=== PATIENT | female | born 1985 | race Caucasian/White ===

== ENCOUNTER 2016-06-07 07:20 | Emergency (ER) | payer BC ==
--- NOTE | 2016-06-07 07:41 | Emergency Department Record ---
History of Present Illness - General Chief Complaint: Dizziness Stated Complaint: DIZZINESS Time Seen by Provider: 06/07/16 07:26 Source: Patient Mode of Arrival: Ambulatory Limitations: No limitations - History of Present Illness Initial Comments: 31 yo female presents to ED with a CC of fatigue, dizziness, generalized weakness, and difficulty with concentration for the past several days (3-4 per patient). Patient denies fevers, chills, cough, or recent illness. Patient reports a history of anemia and psoriatic arthritis at her baseline. Patient denies any focal weakness on examination. MD Complaint: Dizziness Onset/Timin -: Days(s) Timing: Gradual onset Description: Other History of Same: No History of Trauma: No Severity: Moderate Improves With: Nothing Worsens With: Nothing Associated Symptoms: Weakness - [place] Coma Scale Eye Response: (4) Open spontaneously Motor Response: (6) Obeys commands Verbal Response: (5) Oriented [place] Total: 15 - Related Data Home Medications Medication Instructions Recorded Confirmed Last Taken Esomeprazole Magnesium [Nexium] 40 mg PO DAILY 12/19/13 06/07/16 06/07/16 Ondansetron [Zofran Odt] 4 mg PO Q6H PRN 12/19/13 06/07/16 06/07/16 Etanercept [Enbrel] 50 mg SQ WEEKLY 06/07/16 06/07/16 Unknown Allergies Allergy/AdvReac Type Severity Reaction Status Date / Time levofloxacin AdvReac Unknown NAUSEA AND Verified 06/07/16 07:29 VOMITING Travel Screening - Travel/Exposure Within Last 30 Days Have you traveled within the last 30 days?: No Review of Systems Constitutional: Reports: Weakness (generalized). Denies: Chills, Fever, Malaise , Night sweats Eyes: Denies: Eye discharge, Eye pain ENT: Denies: Congestion, Ear pain, Epistaxis Respiratory: Denies: Cough, Dyspnea Cardiovascular: Denies: Chest pain, Dyspnea on exertion Endocrine: Reports: Fatigue. Denies: Heat or cold intolerance Gastrointestinal: Denies: Abdominal pain, Nausea, Vomiting Genitourinary: Denies: Dysuria, Frequency, Hematuria, Incontinence Musculoskeletal: Denies: Arthralgia, Back pain, Gout, Joint swelling Skin: Denies: Bruising, Change in color Neurological: Denies: Abnormal gait, Confusion, Headache, Seizure Psychiatric: Denies: Anxiety Hematological/Lymphatic: Denies: Anemia, Blood Clots Past Medical History - SOCIAL HISTORY Smoking Status: Never smoker Alcohol Use: None Drug Use: None - RESPIRATORY Hx Respiratory Disorders: No - CARDIOVASCULAR Hx Cardio Disorders: No - NEURO Hx Neuro Disorders: No - GI Hx GI Disorders: No - Hx Genitourinary Disorders: No - ENDOCRINE Hx Endocrine Disorders: No - MUSCULOSKELETAL Hx Musculoskeletal Disorders: Yes Hx Arthritis: Yes (psoriatic) - PSYCH Hx Psych Problems: No - HEMATOLOGY/ONCOLOGY Hx Hematology/Oncology Disorders: No Hx Anemia: Yes Family Medical History Any Significant Family History?: Yes Hx Diabetes: Grandparents Hx HTN: Father Physical Exam - General General Appearance: Alert, Oriented x3, Cooperative, No acute distress Limitations: No limitations - Head Head exam: Atraumatic, Normocephalic, Normal inspection Head exam detail: negative: Abrasion, Contusion, Vásquez's sign, General tenderness, Hematoma, Laceration - Eye Eye exam: Normal appearance. negative: Conjunctival injection, Periorbital swelling, Periorbital tenderness, Scleral icterus - ENT Ear exam: negative: Auricular hematoma, Auricular trauma Nasal Exam: negative: Active bleeding, Discharge, Dried blood, Foreign body Mouth exam: negative: Drooling, Laceration, Muffled voice, Tongue elevation - Neck Neck exam: Normal inspection. negative: Meningismus, Tenderness - Respiratory Respiratory exam: Normal lung sounds bilaterally. negative: Rales, Respiratory distress, Rhonchi, Stridor - Cardiovascular Cardiovascular Exam: Regular rate, Normal rhythm, Normal heart sounds - GI/Abdominal GI/Abdominal exam: Soft. negative: Rebound, Rigid, Tenderness - Rectal Rectal exam: Deferred - exam: Deferred - Extremities Extremities exam: Normal inspection, Full ROM. negative: Calf tenderness, Pedal edema, Tenderness - Back Back exam: Denies: CVA tenderness (R), CVA tenderness (L) - Neurological Neurological exam: Alert, Normal gait, Oriented X3 - Psychiatric Psychiatric exam: Normal affect, Normal mood - Skin Skin exam: Normal color. negative: Abrasion Type of lesion: negative: abrasion Course Vital Signs 06/07/16 07:23 Temperature 97.7 F Pulse Rate 101 H Respiratory 18 Rate Blood Pressure 135/112 Pulse Ox 100 - Reevaluation(s) Reevaluation #1: 06/07/16 07:39 NIH Stroke scale is 0 on examination. Labs and CT imaging ordered for further evaluation. Reevaluation #2: 06/07/16 08:28 CT Brain: No acute process. Reevaluation #3: 06/07/16 08:53 Labs reviewed and are grossly unremarkable for an acute process. Updated the patient and her friend at the bedside regarding all results, patient again denies any focal weakness but reports feeling that she could "just sleep for days". Will ambulate the patient and reassess. Medical Decision Making - Lab Data Result diagrams: 06/07/16 07:47 06/07/16 07:47 Disposition Disposition: Discharge Clinical Impression: Weakness Disposition: Home, Self-Care Condition: (2) Stable Instructions: Weakness (ED) Additional Instructions: Return to ED if your symptoms worsen or if you have any concerns. Follow-up with both your Rn Paralegal and Dr. Feliciano for further evaluation of your weakness symptoms. Forms: Patient Portal Access Time of Disposition: 09:00
[2016-06-07 07:52] LABS: EOS % 1.9 % (0-6); GRAN % 46.7 % (47-80); HEMATOCRIT 39.6 % (35.0-47.0); HEMOGLOBIN 12.6 gm/dl (11.6-16.0); LYMPH % 44.4 % (16-45); MEAN CELL VOLUME 81.1 fl (81-97); MEAN CORPUSCULAR HEMOGLOBIN 25.8 pg (27-33); MEAN CORPUSCULAR HGB CONC 31.8 g/dl (32-36); MEAN PLATELET VOLUME 10.9 fl (7.4-10.4); PLATELET COUNT 310 K/uL (130-400); RED BLOOD COUNT 4.88 M/uL (3.80-5.40); RED CELL DISTRIBUTION WIDTH 16.1 % (11.5-14.5); WHITE BLOOD COUNT W/O DIFF 6.3 K/uL (4.2-12.2)
[2016-06-07 07:56] LABS: URINE APPEARANCE CLEAR; URINE BILIRUBIN NEGATIVE (NEGATIVE); URINE BLOOD MODERATE (NEGATIVE); URINE COLOR YELLOW; URINE GLUCOSE (UA) NEGATIVE (NEGATIVE); URINE KETONE NEGATIVE (NEGATIVE); URINE LEUKOCYTE ESTERASE NEGATIVE (NEGATIVE); URINE NITRITE NEGATIVE (NEGATIVE); URINE PROTEIN TRACE (NEGATIVE); URINE UROBILINOGEN 0.2 E.U./dL (0.20 - 1.00)
[2016-06-07 08:02] LABS: HCG,QUALITATIVE URINE NEGATIVE (NEGATIVE)
[2016-06-07 08:05] LABS: URINE BACTERIA FEW; URINE MUCUS MODERATE; URINE WBC 0 - 2 (0-2/hpf)
[2016-06-07 08:17] LABS: AMMONIA < 8.7 umol/L (9-30)
[2016-06-07 08:21] LABS: BLOOD UREA NITROGEN 9 mg/dL (7-17); CREATININE 0.7 mg/dL (0.52-1.04); EST GLOMERULAR FILTRATION RATE > 60 ml/min; GLUCOSE,RANDOM 93 mg/dL (70-110)
[2016-06-07 08:22] LABS: ALB/GLOB RATIO 1.4 (1.1-1.8); ALBUMIN 4.7 gm/dL (3.5-5.0); ALKALINE PHOSPHATASE 93 U/L (38-126); ALT/SGPT 23 U/L (9-52); AST/SGOT 18 U/L (14-36)
[2016-06-07 08:49] LABS: THYROID STIMULATING HORMONE 1.11 uIU/ml (0.465-4.68)
--- NOTE | 2016-06-09 08:20 | CT SCAN REPORT ---
EXAM: HEAD CT WITHOUT CONTRAST HISTORY: WEAKNESS, DIZZINESS, LOSING TRAIN OF THOUGHT. TECHNIQUE: Contiguous axial images from the cerebral convexities to the foramen magnum were obtained without IV contrast. Comparison: None. Hand dominance: Right. FINDINGS: The brain volume is normal. No acute intracranial hemorrhage, mass effect, or midline shift. CSF density in the right lentiform nucleus consistent with an incidental perivascular CSF space measuring [address] evidence of acute infarct. The ventricles, basal cisterns, and sulci are within normal limits. The osseous structures, soft tissues, and paranasal sinuses are unremarkable. IMPRESSION: UNREMARKABLE HEAD CT. JOB NUMBER: [id number] MTDD
== END 2016-06-07 09:17 | disposition home or self-care (01) ==
LOC: ER 07:20
DX: R53.1 Weakness (principal); R42 Dizziness and giddiness; R41.840 Attention and concentration deficit
CPT/HCPCS: 70450; 80053; 81001; 81025; 82140; 84443; 85025; 86308; 99283; 99284

== ENCOUNTER 2017-07-28 18:44 | Emergency (ER) | payer BC ==
[2017-07-28] MEDS ORDERED: CLINDAMYCIN 150 MG CAP PO ONE (18:56)
--- NOTE | 2017-07-28 19:02 | Emergency Department Record ---
History of Present Illness - General Chief complaint: Rash Stated complaint: FACIAL SWELLING Time Seen by Provider: 07/28/17 18:47 Source: Patient Mode of Arrival: Ambulatory Limitations: No limitations - History of Present Illness Initial comments: 32 yo female presents to ED for evaluation of erythema and pain to the right side of the face that began this morning. Patient denies fevers, chills, or recent illness. Patient does have a history of psoriatic arthritis and as a result, has difficulty "fighting infections". Patient denies ear or dental pain symptoms, denies fevers, chills, or other illness symptoms. MD complaint: Rash Onset/Timin -: Days(s) Patient Tetanus UTD (within 5 yrs): Yes Location: Face Severity: Moderate Severity scale (1-10): 8 Quality: Aching Consistency: Constant Improves with: None Worsens with: None Context: None Associated symptoms: Denies other symptoms Treatments Prior to Arrival: None - Related Data Previous Rx's Medication Instructions Recorded Clindamycin HCl 300 mg PO QID #27 capsule 07/28/17 Allergies Allergy/AdvReac Type Severity Reaction Status Date / Time levofloxacin AdvReac Unknown NAUSEA AND Verified 07/28/17 18:55 VOMITING Travel Screening - Travel/Exposure Within Last 30 Days Have you traveled within the last 30 days?: No - Travel/Exposure Within Last Year Have you traveled outside the [place] in the last year?: No - Additonal Travel Details Have you been exposed to anyone with a communicable illness?: No - Travel Symptoms Symptom Screening: None Review of Systems Constitutional: Denies: Chills, Fever, Malaise, Night sweats Eyes: Denies: Eye discharge, Eye pain ENT: Denies: Congestion, Ear pain, Epistaxis Respiratory: Denies: Cough, Dyspnea Cardiovascular: Denies: Chest pain, Dyspnea on exertion, Palpitations Endocrine: Denies: Fatigue, Heat or cold intolerance Gastrointestinal: Denies: Abdominal pain, Nausea, Vomiting Genitourinary: Denies: Incontinence, Retention Musculoskeletal: Denies: Arthralgia, Back pain, Gout, Joint swelling Skin: Reports: Rash (redness to the right side of the face). Denies: Bruising, Change in color Neurological: Denies: Abnormal gait, Confusion, Headache Psychiatric: Denies: Anxiety Hematological/Lymphatic: Denies: Anemia, Blood Clots Past Medical History - SOCIAL HISTORY Smoking Status: Never smoker Alcohol Use: None Drug Use: None - RESPIRATORY Hx Respiratory Disorders: No - CARDIOVASCULAR Hx Cardio Disorders: No - NEURO Hx Neuro Disorders: No - GI Hx GI Disorders: Yes Hx Reflux: Yes - Hx Genitourinary Disorders: No - ENDOCRINE Hx Endocrine Disorders: No - MUSCULOSKELETAL Hx Musculoskeletal Disorders: Yes Hx Arthritis: Yes (psoriatic) - PSYCH Hx Psych Problems: No - HEMATOLOGY/ONCOLOGY Hx Hematology/Oncology Disorders: No Hx Anemia: Yes Family Medical History Any Significant Family History?: Yes Hx Diabetes: Grandparents Hx HTN: Father Physical Exam - General General Appearance: Alert, Oriented x3, Cooperative, Mild distress Limitations: No limitations - Head Head exam: Atraumatic, Normocephalic Head exam detail: General tenderness. negative: Abrasion, Contusion, Vásquez's sign, Hematoma, Laceration Image of Face/Head: 1 - Area or erythema, induration just anterior to the left ear - Eye Eye exam: Normal appearance. negative: Conjunctival injection, Periorbital swelling, Periorbital tenderness, Scleral icterus - ENT Ear exam: negative: Auricular hematoma, Auricular trauma Nasal Exam: negative: Active bleeding, Discharge, Dried blood, Sinus tenderness Mouth exam: negative: Drooling, Laceration, Tongue elevation Teeth exam: negative: Dental caries, Dental tenderness # - Neck Neck exam: Normal inspection. negative: Meningismus, Tenderness - Respiratory Respiratory exam: Normal lung sounds bilaterally. negative: Respiratory distress, Rhonchi, Stridor, Wheezes - Cardiovascular Cardiovascular Exam: Regular rate, Normal rhythm, Normal heart sounds - GI/Abdominal GI/Abdominal exam: Soft. negative: Pulsatile mass, Rebound, Rigid - Rectal Rectal exam: Deferred - exam: Deferred - Extremities Extremities exam: Normal inspection. negative: Calf tenderness, Pedal edema, Tenderness - Back Back exam: Denies: CVA tenderness (R), CVA tenderness (L) - Neurological Neurological exam: Alert, Normal gait, Oriented X3 - Psychiatric Psychiatric exam: Normal affect, Normal mood - Skin Skin exam: Erythema, Rash Type of lesion: Rash. negative: abrasion Distribution of rash: Face Description of rash: Erythematous, Indurated, Tenderness Course Vital Signs 07/28/17 18:48 Temperature 99.4 F Pulse Rate 121 H Respiratory 20 Rate Blood Pressure 162/108 Pulse Ox 100 - Reevaluation(s) Reevaluation #1: 07/28/17 19:01 Examination appears c/w cellulitis of the left face just anterior to the tragus. No crepitation on examination to suggest necrotizing infection, left EAC and ear appears normal as well. Patient is otherwise well appearing and stable for outpatient treatment for cellulitis of the left face. 07/28/17 19:06 Recheck pulse 105 (down from 121 on triage). Disposition Disposition: Discharge Clinical Impression: Facial cellulitis Disposition: Home, Self-Care Condition: (2) Stable Instructions: Cellulitis (ED) Additional Instructions: Return to ED if your symptoms worsen or if you have any concerns. Clindamycin as directed. Follow-up with your family doctor in 1-3 days as directed. Prescriptions: Clindamycin HCl 300 mg PO QID #27 capsule Forms: Patient Portal Access Time of Disposition: 19:04 Quality - Quality Measures Quality Measures: N/A - Blood Pressure Screening Does Patient Have Any of the Following: No Blood Pressure Classification: Hypertensive Reading Systolic Measurement: 162 Diastolic Measurement: 108 Screening for High Blood Pressure: < First Hypertensive BP, F/U Documented > [ G8950] First Hypertensive Follow-up Interventions: Referral to alternative/primary care provider.
== END 2017-07-28 19:20 | disposition home or self-care (01) ==
LOC: ER 18:44
DX: L03.211 Cellulitis of face (principal); R00.0 Tachycardia, unspecified
CPT/HCPCS: 99283

== ENCOUNTER 2019-03-05 16:14 | Emergency (ER) | payer BC ==
[2019-03-05 16:56] LABS: ABSOLUTE NEUTROPHIL COUNT 7.74; BASO % 0.1 % (0-6); EOS % 0.1 % (0-6); HEMATOCRIT 39.4 % (35.0-47.0); HEMOGLOBIN 12.1 gm/dl (11.6-16.0); LYMPH % 5.9 % (16-45); MEAN CELL VOLUME 80.4 fl (81-97); MEAN CORPUSCULAR HEMOGLOBIN 24.7 pg (27-33); MEAN CORPUSCULAR HGB CONC 30.7 g/dl (32-36); MEAN PLATELET VOLUME 10.2 fl (7.4-10.4); MONO % 3.2 % (0-9); PLATELET COUNT 306 K/uL (130-400); RED CELL DISTRIBUTION WIDTH 17.2 % (11.5-14.5); WHITE BLOOD COUNT W/O DIFF 8.5 K/uL (4.2-12.2)
[2019-03-05 17:08] LABS: BLOOD UREA NITROGEN 14 mg/dL (6-20); CREATININE 0.4 mg/dL (0.5-0.9); EST GLOMERULAR FILTRATION RATE > 60 mL/min
[2019-03-05 17:11] LABS: GLUCOSE,RANDOM 103 mg/dL (74-109)
[2019-03-05 17:12] LABS: ANISOCYTOSIS 1+; MICROCYTOSIS 1+; PLATELET ESTIMATE NORMAL (NORMAL); TOXIC GRANULATION 1+
[2019-03-05 17:13] LABS: ALB/GLOB RATIO 1.2 (1.1-1.8); ALBUMIN 4.4 g/dL (4.0-5.0); ALT/SGPT 18 U/L (<33)
[2019-03-05 17:14] LABS: ALKALINE PHOSPHATASE 92 U/L (35-104)
[2019-03-05 17:16] LABS: AST/SGOT 34 U/L (10.0-35.0)
[2019-03-05 17:46] LABS: INFLUENZA A NEGATIVE (NEGATIVE); INFLUENZA B NEGATIVE (NEGATIVE)
--- NOTE | 2019-03-05 18:05 | RADIOLOGY REPORT ---
EXAMINATION: Two View Chest Radiographs EXAM DATE: 03/05/2019 5:54 PM TECHNIQUE: Frontal and lateral views INDICATION: cough COMPARISON: None ENCOUNTER: Not applicable FINDINGS: The heart, mediastinum, and pulmonary vasculature are normal. No lung consolidation or pleural effu sions are present. IMPRESSION: No acute cardiopulmonary disease is present. Dictated by: Neymar Leon MD on 03/05/2019 6:01 PM. .
--- NOTE | 2019-03-05 18:18 | CT SCAN REPORT ---
EXAMINATION: HEAD WO CONTRAST EXAM DATE: 03/05/2019 5:54 PM TECHNIQUE: Noncontrast axial images were obtained to the brain. INDICATION: dizziness COMPARISON: 06/07/2016 ENCOUNTER: Not applicable HAND DOMINANCE: Unknown FINDINGS: The brain parenchyma is unremarkable for age. No loss of patricio-white matter differentiation or sulcal effacement to indicate acute infarction. No evidence of intracranial mass. The ventricles, sulci, and subarachnoid spaces are unremarkable for age. The basal cisterns are paten t and there is no midline shift or herniation. No intra-axial or extra-axial fluid collection. No evidence of intracranial hemorrhage. The paranasal sinuses, mastoid air cells, and orbits are unremarkable. The calvarium is intact. In complete fusion of the posterior arch of C1 IMPRESSION: 1. No CT evidence of intracranial hemorrhage or acute intracranial abnormality. Please note that interpretation was delayed due to technical issues with image transmission. Dictated by: KATHIE JAMES MD on 03/05/2019 5:57 PM. .
[2019-03-05] MEDS ORDERED: 0.9 % SODIUM CHLORIDE 1,000 ML BAG IV ONE (18:22)
[2019-03-05] MEDS ORDERED: KETOROLAC 30 MG/ML VIAL IVP ONE (18:24)
[2019-03-05] MEDS ORDERED: MECLIZINE 25 MG TABLET PO ONE (18:24)
--- NOTE | 2019-03-05 18:29 | Emergency Department Record ---
History of Present Illness - General Chief Complaint: Dizziness Stated Complaint: DIZZINESS, CHEST PAIN Time Seen by Provider: 03/05/19 16:57 Source: Patient Mode of Arrival: Ambulatory Limitations: No limitations - History of Present Illness Initial Comments: pt hasnt felt well for 4 days. she has a cough, she feels weak and wobbly. she is dizzy and the room spins. she has nausea and had 1 bout of diarrhea. MD Complaint: Dizziness, Lightheadedness Onset/Timin -: Days(s) Description: Difficulty walking Worsens With: Movement - [place] Coma Scale Eye Response: (4) Open spontaneously Motor Response: (6) Obeys commands Verbal Response: (5) Oriented [place] Total: 15 - Symptoms of Stroke Symptoms of stroke: Dizziness, Vertigo - Related Data Previous Rx's Medication Instructions Recorded Clindamycin HCl 300 mg PO QID #27 capsule 07/28/17 Meclizine HCl [Antivert] 25 mg PO Q8H #10 tablet 03/05/19 Allergies Allergy/AdvReac Type Severity Reaction Status Date / Time levofloxacin AdvReac Unknown NAUSEA AND Verified 07/28/17 18:55 VOMITING Travel Screening - Travel/Exposure Within Last 30 Days Have you traveled within the last 30 days?: No - Travel/Exposure Within Last Year Have you traveled outside the [place] in the last year?: No - Additonal Travel Details Have you been exposed to anyone with a communicable illness?: No - Travel Symptoms Symptom Screening: None, Fever (Subjective), Headache, Fatigue, Diarrhea, Chills Review of Systems Reviewed: No additional complaints except as noted below Constitutional: Reports: As per HPI, Chills, Weakness. Denies: Fever, Malaise, Night sweats, Weight change Eyes: Reports: As per HPI. Denies: Eye discharge, Eye pain, Photophobia, Vision change ENT: Reports: As per HPI. Denies: Congestion, Dental pain, Ear pain, Epistaxis, Hearing loss, Throat pain Respiratory: Reports: As per HPI. Denies: Cough, Dyspnea, Hemoptysis, Stridor, Wheezes Cardiovascular: Reports: As per HPI. Denies: Arrhythmia, Chest pain, Dyspnea on exertion, Edema, Murmurs, Orthopnea, Palpitations, Paroxysmal nocturnal dyspnea, Rheumatic Fever, Syncope Endocrine: Reports: As per HPI. Denies: Fatigue, Heat or cold intolerance, Polydipsia, Polyuria Gastrointestinal: Reports: As per HPI, Nausea. Denies: Abdominal pain, Constipation, Diarrhea, Hematemesis, Hematochezia, Melena, Vomiting Genitourinary: Reports: As per HPI. Denies: Abnormal menses, Discharge, Dyspareunia, Dysuria, Frequency, Hematuria, Incontinence, Retention, Urgency Musculoskeletal: Reports: As per HPI. Denies: Arthralgia, Back pain, Gout, Joint swelling, Myalgia, Neck pain Skin: Reports: As per HPI. Denies: Bruising, Change in color, Change in hair/nails, Lesions, Pruritus, Rash Neurological: Reports: As per HPI, Vertigo. Denies: Abnormal gait, Confusion, Headache, Numbness, Paresthesias, Seizure, Tingling, Tremors, Weakness Psychiatric: Reports: As per HPI. Denies: Anxiety, Auditory hallucinations, Depression, Homicidal thoughts, Suicidal thoughts, Visual hallucinations Hematological/Lymphatic: Reports: As per HPI. Denies: Anemia, Blood Clots, Easy bleeding, Easy bruising, Swollen glands Past Medical History - SOCIAL HISTORY Smoking Status: Never smoker Alcohol Use: None Drug Use: None - RESPIRATORY Hx Respiratory Disorders: No - CARDIOVASCULAR Hx Cardio Disorders: No - NEURO Hx Neuro Disorders: No - GI Hx GI Disorders: Yes Hx Reflux: Yes - Hx Genitourinary Disorders: No - ENDOCRINE Hx Endocrine Disorders: No - MUSCULOSKELETAL Hx Musculoskeletal Disorders: Yes Hx Arthritis: Yes (psoriatic) - PSYCH Hx Psych Problems: Yes Hx Anxiety: Yes - HEMATOLOGY/ONCOLOGY Hx Hematology/Oncology Disorders: Yes Hx Anemia: Yes Family Medical History Any Significant Family History?: No Hx Diabetes: Grandparents Hx HTN: Father Physical Exam - General General Appearance: Alert, Oriented x3, Cooperative, Mild distress - Head Head exam: Normal inspection - Eye Eye exam: Normal appearance, PERRL, EOMI Pupils: Normal accommodation - ENT ENT exam: Normal exam, Mucous membranes moist, Normal external ear exam, Normal orophraynx Ear exam: Normal external inspection. negative: External canal tenderness Nasal Exam: Normal inspection. negative: Discharge, Sinus tenderness Mouth exam: Normal external inspection, Tongue normal Teeth exam: Normal inspection. negative: Dental caries Throat exam: Normal inspection. negative: Tonsillar erythema, Tonsillar exudate - Neck Neck exam: Normal inspection, Full ROM. negative: Tenderness - Respiratory Respiratory exam: Normal lung sounds bilaterally. negative: Respiratory distress - Cardiovascular Cardiovascular Exam: Regular rate, Normal rhythm, Normal heart sounds - GI/Abdominal GI/Abdominal exam: Soft, Normal bowel sounds. negative: Tenderness - Rectal Rectal exam: Deferred - exam: Deferred - Extremities Extremities exam: Normal inspection, Full ROM, Normal capillary refill. negative: Tenderness - Back Back exam: Reports: Normal inspection, Full ROM. Denies: Muscle spasm, Rash noted, Tenderness - Neurological Neurological exam: Alert, CN II-XII intact, Normal gait, Oriented X3 - Psychiatric Psychiatric exam: Normal affect, Normal mood - Skin Skin exam: Dry, Intact, Normal color, Warm Course Vital Signs 03/05/19 16:18 Temperature 97.5 F L Pulse Rate 97 H Respiratory 16 Rate Blood Pressure 125/81 Pulse Ox 96 - Reevaluation(s) Reevaluation #1: 03/05/19 19:01 ct and cxr are neg. pt is feeling better after iv fluids. Medical Decision Making - Lab Data Result diagrams: 03/05/19 16:42 03/05/19 16:42 Lab Results 03/05/19 03/05/19 03/05/19 Range/Units 16:42 16:42 16:42 WBC 8.5 (4.2-12.2) K/uL RBC 4.90 (3.80-5.40) M/uL Hgb 12.1 (11.6-16.0) gm/dl Hct 39.4 (35.0-47.0) % MCV 80.4 L (81-97) fl MCH 24.7 L (27-33) pg MCHC 30.7 L (32-36) g/dl RDW 17.2 H (11.5-14.5) % Plt Count 306 (130-400) K/uL MPV 10.2 (7.4-10.4) fl Neutrophils % 90.0 H (47-80) % Band Neutrophils % 3.0 (0-5) % Lymphocytes % 5.9 L (16-45) % Monocytes % 3.2 (0-9) % Eosinophils % 0.1 (0-6) % Basophils % 0.1 (0-6) % Absolute Neutrophils 7.74 Lymphocytes 5.0 L (16-45) % Monocytes 1.0 (0-9) % Myelocytes 1.0 % Toxic Granulation 1+ Platelet Estimate Normal (NORMAL) Anisocytosis 1+ Microcytosis 1+ D-Dimer (0-0.59) mg/L FEU Sodium 138 (136-145) mmol/L Potassium 4.7 H (3.4-4.5) mmol/L Chloride 101 (98-107) mmol/L Carbon Dioxide 21.0 L (22-29) mmol/L Anion Gap 16.0 (7-16) BUN 14 (6-20) mg/dL Creatinine 0.4 L (0.5-0.9) mg/dL Estimated GFR > 60 mL/min Random Glucose 103 (74-109) mg/dL Calcium 9.3 (8.6-10.0) mg/dL Total Bilirubin 0.40 (0.2-1.0) mg/dL AST 34 (10.0-35.0) U/L ALT 18 (<33) U/L Alkaline Phosphatase 92 (35-104) U/L CK-MB (CK-2) < 1.0 (<3.77) ng/mL Troponin T (0-0.010) ng/mL Total Protein 8.0 (6.6-8.7) g/dL Albumin 4.4 (4.0-5.0) g/dL Globulin 3.6 (1.4-4.8) gm/dL Albumin/Globulin Ratio 1.2 (1.1-1.8) TSH (0.270-4.20) uIU/mL Influenza Type A Ag (NEGATIVE) Influenza Type B Ag (NEGATIVE) 03/05/19 03/05/19 03/05/19 Range/Units 16:42 16:42 16:42 WBC (4.2-12.2) K/uL RBC (3.80-5.40) M/uL Hgb (11.6-16.0) gm/dl Hct (35.0-47.0) % MCV (81-97) fl MCH (27-33) pg MCHC (32-36) g/dl RDW (11.5-14.5) % Plt Count (130-400) K/uL MPV (7.4-10.4) fl Neutrophils % (47-80) % Band Neutrophils % (0-5) % Lymphocytes % (16-45) % Monocytes % (0-9) % Eosinophils % (0-6) % Basophils % (0-6) % Absolute Neutrophils Lymphocytes (16-45) % Monocytes (0-9) % Myelocytes % Toxic Granulation Platelet Estimate (NORMAL) Anisocytosis Microcytosis D-Dimer 0.25 (0-0.59) mg/L FEU Sodium (136-145) mmol/L Potassium (3.4-4.5) mmol/L Chloride (98-107) mmol/L Carbon Dioxide (22-29) mmol/L Anion Gap (7-16) BUN (6-20) mg/dL Creatinine (0.5-0.9) mg/dL Estimated GFR mL/min Random Glucose (74-109) mg/dL Calcium (8.6-10.0) mg/dL Total Bilirubin (0.2-1.0) mg/dL AST (10.0-35.0) U/L ALT (<33) U/L Alkaline Phosphatase (35-104) U/L CK-MB (CK-2) (<3.77) ng/mL Troponin T < 0.010 (0-0.010) ng/mL Total Protein (6.6-8.7) g/dL Albumin (4.0-5.0) g/dL Globulin (1.4-4.8) gm/dL Albumin/Globulin Ratio (1.1-1.8) TSH 0.52 (0.270-4.20) uIU/mL Influenza Type A Ag (NEGATIVE) Influenza Type B Ag (NEGATIVE) 03/05/19 Range/Units Unknown WBC (4.2-12.2) K/uL RBC (3.80-5.40) M/uL Hgb (11.6-16.0) gm/dl Hct (35.0-47.0) % MCV (81-97) fl MCH (27-33) pg MCHC (32-36) g/dl RDW (11.5-14.5) % Plt Count (130-400) K/uL MPV (7.4-10.4) fl Neutrophils % (47-80) % Band Neutrophils % (0-5) % Lymphocytes % (16-45) % Monocytes % (0-9) % Eosinophils % (0-6) % Basophils % (0-6) % Absolute Neutrophils Lymphocytes (16-45) % Monocytes (0-9) % Myelocytes % Toxic Granulation Platelet Estimate (NORMAL) Anisocytosis Microcytosis D-Dimer (0-0.59) mg/L FEU Sodium (136-145) mmol/L Potassium (3.4-4.5) mmol/L Chloride (98-107) mmol/L Carbon Dioxide (22-29) mmol/L Anion Gap (7-16) BUN (6-20) mg/dL Creatinine (0.5-0.9) mg/dL Estimated GFR mL/min Random Glucose (74-109) mg/dL Calcium (8.6-10.0) mg/dL Total Bilirubin (0.2-1.0) mg/dL AST (10.0-35.0) U/L ALT (<33) U/L Alkaline Phosphatase (35-104) U/L CK-MB (CK-2) (<3.77) ng/mL Troponin T (0-0.010) ng/mL Total Protein (6.6-8.7) g/dL Albumin (4.0-5.0) g/dL Globulin (1.4-4.8) gm/dL Albumin/Globulin Ratio (1.1-1.8) TSH (0.270-4.20) uIU/mL Influenza Type A Ag Negative (NEGATIVE) Influenza Type B Ag Negative (NEGATIVE) Disposition Disposition: Discharge Clinical Impression: Dehydration, Vertigo Disposition: Home, Self-Care Condition: (1) Good Instructions: Dehydration (ED), Vertigo (ED) Additional Instructions: follow up with family doctor. return sooner if worse. push fluids. Prescriptions: Meclizine HCl [Antivert] 25 mg PO Q8H #10 tablet Quality - Quality Measures Quality Measures: N/A - Blood Pressure Screening Does Patient Have Any of the Following: No Blood Pressure Classification: Pre-Hypertensive BP Reading Systolic Measurement: 125 Diastolic Measurement: 81 Screening for High Blood Pressure: < Pre-Hypertensive BP, F/U Documented > [G8950] Pre-Hypertensive Follow-up Interventions: Follow-up with rescreen every year.
[2019-03-05 18:54] LABS: URINE APPEARANCE SL CLOUDY; URINE BILIRUBIN SMALL (NEGATIVE); URINE BLOOD NEGATIVE (NEGATIVE); URINE COLOR YELLOW; URINE GLUCOSE (UA) NEGATIVE (NEGATIVE); URINE KETONE 40 mg/dL (NEGATIVE); URINE LEUKOCYTE ESTERASE NEGATIVE (NEGATIVE); URINE NITRITE NEGATIVE (NEGATIVE); URINE PROTEIN NEGATIVE (NEGATIVE); URINE UROBILINOGEN 0.2 E.U./dL (0.20 - 1.00)
[2019-03-05] MEDS ORDERED: PROMETHAZINE HCL 12.5 MG in 0.9 % SODIUM CHLORIDE 100ML 100 ML IVPB ONE (19:30)
== END 2019-03-05 20:13 | disposition home or self-care (01) ==
LOC: ER 16:14
DX: E86.0 Dehydration (principal); R42 Dizziness and giddiness; R19.7 Diarrhea, unspecified; R11.0 Nausea
CPT/HCPCS: 70450; 71046; 80053; 81003; 82553; 84443; 84484; 85027; 85379; 87400; 93005; 93010; 96361; 96365; 96375; 99284; J1885; J2550; J7030